=== PATIENT | female | born 1980 | race Two or more races ===

== ENCOUNTER 2017-05-07 04:50 | Emergency (ER) | payer SELFPAY ==
[~2017-05-07] VITALS: Ht 170.2 cm; Wt 111.6 kg
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
[2017-05-07 05:30] VITALS: BP 123/79
[2017-05-07] MEDS ORDERED: ALBUTEROL SULF8.5 GM INH (08:01)
== END 2017-05-07 05:43 | disposition home or self-care (01) ==
LOC: EDBD 04:50 → EMR 05:02
DX: R52 Pain, unspecified (principal); F41.9 Anxiety disorder, unspecified; R11.0 Nausea; Z98.84 Bariatric surgery status; F32.9 Major depressive disorder, single episode, unspecified; J45.909 Unspecified asthma, uncomplicated; F17.200 Nicotine dependence, unspecified, uncomplicated; Z88.5 Allergy status to narcotic agent
CPT/HCPCS: 99283

== ENCOUNTER 2017-06-16 19:26 | Emergency (ER) | payer MEDICAID ==
[~2017-06-16] VITALS: Ht 165.1 cm; Wt 106.6 kg
[2017-06-16 19:26] VITALS: BP 125/81
[~2017-06-16 19:26] MED LIST: ALBUTEROL SULF8.5 GM INH
--- NOTE | 2017-06-16 20:37 | Emergency Room Report ---
History of Present Illness General Chief Complaint: Pain Source: Patient Present Illness HPI 37-year-old female presents to the emergency department complaining of 10 out of 10 in severity left knee pain with some swelling to the lateral side x30 minutes. Patient states that she was walking and her leg gave out on her. Patient states that this has happened to her several times before. Patient denies trauma or fall. Patient states it gives out intermittently she denies clicking, erythema or recent open wounds. Patient denies fevers, chills rashes or bruising. She states that she was previously prescribed naproxen however she takes lithium and she is unable to take naproxen with her lithium. Denies numbness tingling or loss of sensation or gross motor movements of the extremities, incontinence of bowel or bladder. Denies CP, Palpitations, LOC, AMS , dizziness, Changes in Vision, Sensation, paresthesias, or a sudden severe headache. Allergies: Coded Allergies: DIVALPROEX SODIUM (Verified Allergy, Unknown, 05/07/17) HALOPERIDOL (Verified Allergy, Unknown, 05/07/17) ZIPRASIDONE (Verified Allergy, Unknown, 05/07/17) Patient History Past Medical History: see triage record, psych hx Past Surgical History: none Pertinent Family History: none Last Menstrual Period: 05/02 Now: No : 0 Para: 0 Immunizations: UTD Reviewed Nursing Documentation: PMH: Agreed, PSxH: Agreed Nursing Documentation-PMH Hx Cardiac Problems: No - Anemia Hx Asthma: Yes Hx Gastrointestinal Problems: Yes - gallbladder removal Review of Systems All Other Systems: negative except mentioned in HPI Physical Exam Vital Signs Date Time Temp Pulse Resp B/P (MAP) Pulse Ox O2 Delivery O2 Flow Rate FiO2 06/16/17 19:16 98.2 104 16 125/81 99 Room Air Sp02 EP Interpretation: reviewed, normal General Appearance: no apparent distress, alert, GCS 15, non-toxic Head: normocephalic, atraumatic Eyes: bilateral eye normal inspection, bilateral eye PERRL ENT: hearing grossly normal, normal voice Neck: full range of motion, supple/symm/no masses Respiratory: lungs clear, normal breath sounds, speaking full sentences Cardiovascular #1: regular rate, rhythm, normal capillary refill Musculoskeletal: back normal, gait/station normal, normal range of motion, tender - lateral ttp to the Left knee, no abrasions, erythema, increased temperature to palpation .Pt. is ambulatory, no increased laxity to the knee joint, negative anterior drawer sign, mild anterior swelling noted, difficult to assess due to pt. body habitus. Neurologic: alert, oriented x3, responsive, motor strength/tone normal, sensory intact, speech normal Psychiatric: judgement/insight normal, memory normal, mood/affect normal Skin: normal color, no rash, warm/dry, well hydrated Medical Decision Making PA Attestation Dr. Sosa is my supervising Physician whom patient management has been discussed with. Diagnostic Impression: Primary Impression: Knee pain, acute Qualified Codes: M25.562 - Pain in left knee Additional Impression: Left knee sprain Qualified Codes: S83.92XA - Sprain of unspecified site of left knee, initial encounter ER Course 37-year-old female presents to the emergency department complaining of 10 out of 10 in severity left knee pain with some swelling to the lateral side x30 minutes. Patient states that she was walking and her leg gave out on her. Patient states that this has happened to her several times before. Patient denies trauma or fall. Patient states it gives out intermittently she denies clicking, erythema or recent open wounds. Patient denies fevers, chills rashes or bruising. She states that she was previously prescribed naproxen however she takes lithium and she is unable to take naproxen with her lithium. Denies numbness tingling or loss of sensation or gross motor movements of the extremities, incontinence of bowel or bladder. Denies CP, Palpitations, LOC, AMS , dizziness, Changes in Vision, Sensation, paresthesias, or a sudden severe headache. Ddx considered but are not limited to Fracture, dislocation, contusion, Sprain/ Strain/Spasm, Epidural abscess, Neoplastic mets. Vital signs: are WNL, pt. is afebrile H&PE are most consistent with musculoskeletal injury will perform imaging to r/ o fractures/dislocations. ORDERS: - X-ray Lef tknee 3 views - negative for fx, Dislocation, or significant soft tissue injury, per preliminary read in ED, and signed by ALEX El , my supervising physician has reviewed, and agrees with my interpretation. ED INTERVENTIONS: - Jett wrap applied to the left knee by cooling tower technician. Pt. remains neurovascularly intact. DISCHARGE: At this time pt. is stable for d/c to home. Will provide printed patient care instructions, and any necessary prescriptions. Care plan and follow up instructions have been discussed with the patient prior to discharge. Other X-Ray Diagnostic Results Other X-Ray Diagnostic Results : X-Ray ordered: left knee # of Views/Limited Vs Complete: 3 View Indication: Pain EP Interpretation: Yes PA Xray: Interpretation reviewed, by supervising MD, and agrees with findings. Interpretation: no dislocation, no soft tissue swelling, no fractures Impression: No acute disease Electronically Signed by: Ciara El PA-C Last Vital Signs Date Time Temp Pulse Resp B/P (MAP) Pulse Ox O2 Delivery O2 Flow Rate FiO2 06/16/17 19:16 98.2 104 16 125/81 99 Room Air Disposition: HOME, SELF-CARE Condition: Stable Scripts Acetaminophen* (TYLENOL EXTRA STRENGTH*) 500 Mg Tablet 500 MG ORAL Q6H, #20 TAB 0 Refills Prov: Ciara El 06/16/17 Patient Instructions: Knee Pain Additional Instructions: Take medications as directed. Follow up with a Primary Care Provider in 3-5 days, even if your symptoms have resolved. --Please review list of primary care clinics, if you do not already have a primary care provider Return sooner to ED if new symptoms occur, or current symptoms become worse. - Please note that this Emergency Department Report was dictated using [employer] receptionist technology software, occasionally this can lead to erroneous entry secondary to interpretation by the dictation equipment. Ciara El Jun 16, 2017 20:37
[2017-06-16] MEDS ORDERED: TYLENOL EXTRA500 MG ORAL (21:09)
[2017-06-16 21:26] VITALS: BP 129/76
[2017-06-16 21:28] VITALS: BP 129/76
--- NOTE | 2017-06-17 11:04 | Diagnostic Imaging Report ---
Indication: PAIN, status post fall Technique: 3 views of the left knee Comparison: None Findings:There is minimal medial compartmental degenerative joint space narrowing. There are medial compartmental osteophytes. No acute fractures. No dislocations. No gross suprapatellar effusion Impression:Mild degenerative changes, as described No acute bony trauma
== END 2017-06-16 21:28 | disposition home or self-care (01) ==
LOC: EDBD 19:26 → EMR 20:00
DX: S83.92XA Sprain of unspecified site of left knee, initial encounter (principal); Y93.01 Activity, walking, marching and hiking; Y92.410 Unspecified street and highway as the place of occurrence of the external cause; Z88.8 Allergy status to other drugs, medicaments and biological substances
CPT/HCPCS: 99283